=== PATIENT | female | born 1980 | race Caucasian/White ===

== ENCOUNTER → 2021-07-21 | Day surgery (SDC) | payer OTHER ==
[~2021-07-21] VITALS: Ht 170.2 cm; Wt 95.9 kg
[~2021-07-21] MED LIST: CANDICIDAL CAP1 EACH PO; LOVAZA1 GM PO; SIMVASTATIN10 MG PO
[2021-07-21 11:00] LABS: ALBUMIN 3.7 g/dL (3.4-5.0); BILIRUBIN - TOTAL 0.5 mg/dL (0.2-1.0); BUN/CREAT RATIO (CALC) 7.2 RATIO; CREATININE 0.97 mg/dL (0.51-0.95); POTASSIUM 3.9 mmol/L (3.5-5.1); TOTAL PROTEIN 6.7 g/dL (6.4-8.2)
== END | disposition home or self-care (01) ==
LOC: FAS 09:34
PROVIDERS: Surgery
DX: Z12.11 Encounter for screening for malignant neoplasm of colon (principal); K29.50 Unspecified chronic gastritis without bleeding; K63.5 Polyp of colon; K62.1 Rectal polyp; R13.10 Dysphagia, unspecified; R10.12 Left upper quadrant pain; K76.0 Fatty (change of) liver, not elsewhere classified; K44.9 Diaphragmatic hernia without obstruction or gangrene; R93.3 Abnormal findings on diagnostic imaging of other parts of digestive tract; F17.200 Nicotine dependence, unspecified, uncomplicated; K21.9 Gastro-esophageal reflux disease without esophagitis; E78.00 Pure hypercholesterolemia, unspecified; Z79.899 Other long term (current) drug therapy; Z90.49 Acquired absence of other specified parts of digestive tract; Z90.710 Acquired absence of both cervix and uterus; Z80.1 Family history of malignant neoplasm of trachea, bronchus and lung
CPT/HCPCS: 36415; 80053; 82150; 83690; J2250; J2704; J7120